=== PATIENT | female | born 1980 | race African-American/Black ===

== ENCOUNTER 2018-06-26 05:47 | Emergency (ER) | payer MEDICAID ==
[~2018-06-26] VITALS: Ht 160 cm; Wt 49.0 kg
[2018-06-26 09:09] VITALS: BP 129/74
[2018-06-26 09:35] LABS: BASOPHILS % 0.3 % (0.0-2.0); HEMATOCRIT. 38.3 % (36.0-48.0); HEMOGLOBIN. 12.5 g/dL (12.0-16.0); LYMPHOCYTES % 18.6 % (20.0-50.0); MEAN CORPUSCULAR HEMOGLOBIN 26.9 pg (28.0-32.0); MEAN CORPUSCULAR VOLUME 82.5 fL (81.0-99.0); MEAN PLATELET VOLUME 7.2 fl (7.4-10.4); MONOCYTES % 4.8 % (2.0-8.0); NEUTROPHILS % 76.3 % (40.0-76.0); PLATELET 308 x1000/uL (130-400); RED BLOOD CELL COUNT 4.65 mill/uL (4.2-5.4); RED CELL DISTRIBUTION WIDTH 15.6 % (11.6-14.6)
[2018-06-26 09:36] LABS: INR 1.1; PROTHROMBIN TIME 11.1 sec (9.1-11.1)
[2018-06-26 09:37] LABS: CHLORIDE 105 mEq/L (98-107)
== END 2018-06-26 10:31 | disposition home or self-care (01) ==
LOC: ER 05:47
DX: R51 Headache (principal); Z88.0 Allergy status to penicillin
CPT/HCPCS: 36415; 70450; 80048; 81025; 85025; 85610; 99285

== ENCOUNTER 2018-10-05 09:35 | Emergency (ER) | payer MEDICAID ==
[~2018-10-05] VITALS: Ht 157.5 cm; Wt 65.0 kg
[2018-10-05] MEDS ORDERED: ACETAMINOPHEN 325MG TABLET PO ONE (10:45)
[2018-10-05] MEDS ORDERED: IBUPROFEN 400MG TABLET PO ONE (10:45)
[2018-10-05 11:08] LABS: CLARITY URINE CLEAR (CLEAR); COLOR URINE YELLOW (YELLOW); KETONES URINE TRACE (NEGATIVE); LEUKOCYTE ESTERASE URINE 2+ (NEGATIVE); NITRITE URINE NEGATIVE (NEGATIVE); OCCULT BLOOD URINE 2+ (NEGATIVE); PROTEIN URINE NEGATIVE (NEGATIVE); SPECIFIC GRAVITY URINE 1.001 (1.005-1.030); UROBILINOGEN URINE 0.2 E.U./dL (0.2-1.0)
[2018-10-05 11:26] LABS: BASOPHILS % 0.5 % (0.0-2.0); HEMATOCRIT. 39.2 % (36.0-48.0); HEMOGLOBIN. 12.7 g/dL (12.0-16.0); LYMPHOCYTES % 12.1 % (20.0-50.0); MEAN CORPUSCULAR VOLUME 83.2 fL (81.0-99.0); MEAN PLATELET VOLUME 7.3 fl (7.4-10.4); MONOCYTES % 4.9 % (2.0-8.0); NEUTROPHILS % 82.5 % (40.0-76.0); PLATELET 321 x1000/uL (130-400); RED BLOOD CELL COUNT 4.71 mill/uL (4.2-5.4); RED CELL DISTRIBUTION WIDTH 14.2 % (11.6-14.6)
[2018-10-05 11:33] LABS: CHLORIDE 106 mEq/L (98-107)
[2018-10-05 12:45] VITALS: BP 124/71
== END 2018-10-05 13:16 | disposition home or self-care (01) ==
LOC: ER 09:35
DX: N39.0 Urinary tract infection, site not specified (principal); R42 Dizziness and giddiness; E16.2 Hypoglycemia, unspecified; Z88.0 Allergy status to penicillin; Z88.1 Allergy status to other antibiotic agents
CPT/HCPCS: 36415; 81025; 82962; 87077; 87186; 99283